=== PATIENT | female | born 1990 | race Two or more races ===

== ENCOUNTER 2021-11-07 15:29 | Outpatient (CLI) | payer OTHER | END 2021-11-07 17:16 | disposition home or self-care (01) | LOC: PRENATAL 15:29 | PROVIDERS: ATTEND Obstetrics & Gynecology Maternal & Fetal Medicine | DX: O35.0XX0 Maternal care for (suspected) central nervous system malformation in fetus, not applicable or unspecified (principal); O35.3XX0 Maternal care for (suspected) damage to fetus from viral disease in mother, not applicable or unspecified; Z3A.34 34 weeks gestation of pregnancy ==

== ENCOUNTER 2021-12-08 14:30 | Inpatient (IN) | payer OTHER ==
[~2021-12-08] VITALS: Ht 157.5 cm; Wt 60.3 kg
[2021-12-14] MEDS ORDERED: PRENATAL TABLE1 EAC1 PO (22:55)
== END 2021-12-17 11:24 | disposition home or self-care (01) | DRG 807 ==
LOC: OB/GYN 12-14 21:56 → LDR 12-14 21:56 → OB/GYN 12-15 03:39 → LDR 12-17 14:30
PROVIDERS: ADMIT Obstetrics & Gynecology; ATTEND Obstetrics & Gynecology
PROC: 4A1HXCZ Monitoring of Products of Conception, Cardiac Rate, External Approach (ICD-10-PCS; 2021-12-14)
PROC: 10E0XZZ Delivery of Products of Conception, External Approach (ICD-10-PCS; principal; 2021-12-15)
DX: O99.820 Streptococcus B carrier state complicating pregnancy (principal); Z37.0 Single live birth; Z3A.39 39 weeks gestation of pregnancy; Z20.822 Contact with and (suspected) exposure to COVID-19